=== PATIENT | male | born 1960 | race Caucasian/White ===

== ENCOUNTER 2017-10-26 09:18 | Observation (INO) | payer OTHER ==
[2017-10-26 10:25] LABS: ADD MAN DIFF? NO
[2017-10-26 10:29] LABS: WHITE BLOOD COUNT 5.3 10^3/ul (4.8-10.8)
[2017-10-26 10:29] LABS: BASOPHILS % 0.4 % (0.0-2.0); EOSINOPHILS # 0.1 10^3/ul (0.0-0.5); EOSINOPHILS % 1.9 % (0.0-7.0); HEMATOCRIT 40.6 % (42.0-52.0); HEMOGLOBIN 13.6 g/dl (14.0-18.0); LYMPHOCYTES % 38.6 % (15.0-51.0); MEAN CORPUSCULAR HEMOGLOBIN 29.2 pg (29.0-33.0); MEAN CORPUSCULAR HGB CONC 33.5 g/dl (32.0-37.0); MEAN CORPUSCULAR VOLUME 87.3 fl (82.0-101.0); MEAN PLATELET VOLUME 11.6 fl (7.4-10.4); MONOCYTE # 0.4 10^3/ul (0.3-0.9); MONOCYTES % 6.6 % (0.0-11.0); NEUTROPHIL # 2.8 10^3/ul (1.6-7.5); NEUTROPHILS % 52.3 % (39.0-77.0); PLATELET COUNT 195 10^3/UL (140-415); RED BLOOD COUNT 4.65 10^6/ul (4.70-6.10); RED CELL DISTRIBUTION WIDTH 11.2 % (11.5-14.5)
[2017-10-26 10:54] LABS: INR 1.07; PARTIAL THROMBOPLASTIN TIME 33.3 Sec (25.0-35.0); PT RATIO 1.1
[2017-10-26 10:56] LABS: ALANINE AMINOTRANSFERASE 48 IU/L (13-69); ALBUMIN 4.4 g/dl (3.3-4.9); ALKALINE PHOSPHATASE 89 IU/L (42-121); ANION GAP 17 (8-16); ASPARTATE AMINO TRANSFERASE 37 IU/L (15-46); BILIRUBIN,INDIRECT 0.6 mg/dl (0-1.1); BILIRUBIN,TOTAL 0.6 mg/dl (0.2-1.3); CARBON DIOXIDE 26 mmol/L (21-31); CHLORIDE 105 mmol/L (97-110); GLUCOSE 97 mg/dl (70-220)
[2017-10-26 10:57] LABS: ALBUMIN/GLOBULIN RATIO 1.22; CHOL/HDL RATIO 2.6 RATIO; CHOLESTEROL 113 mg/dl (100-200); HDL CHOLESTEROL 43 mg/dl (30-78); LDL CHOLESTEROL,CALCULATED 59 mg/dl; TRIGLYCERIDES 55 mg/dl (0-149)
[2017-10-26 10:59] LABS: BLOOD UREA NITROGEN 15 mg/dl (7-20); CREATININE 0.86 mg/dl (0.61-1.24); POTASSIUM 4.5 mmol/L (3.5-5.1); SODIUM 143 mmol/L (135-144)
[2017-10-26] MEDS: CEFAZOLIN 2 GM/50 ML (PMX) 50 ML IVPB (11:00)
[2017-10-26] MEDS: POLYMYXIN/BACITRACIN 1L IRRIG IRR (11:00)
[2017-10-26] MEDS ORDERED: LIDOCAINE 1%/EPI 30 ML INJ (11:41)
[2017-10-26] MEDS ORDERED: CEFAZOLIN 1 GM/50 ML (PMX) 50 ML IVPB (11:43)
[2017-10-26] MEDS ORDERED: KETAMINE 500 MG INJ (11:57)
[2017-10-26] MEDS ORDERED: MIDAZOLAM 1 MG/ML 2 ML INJ (11:57)
[2017-10-26] MEDS ORDERED: PROPOFOL 100 ML (11:57)
[2017-10-26] MEDS ORDERED: ONDANSETRON 4 MG INJ IV (13:30)
[2017-10-26] MEDS ORDERED: morphine 2 MG INJ IV (13:30)
[2017-10-26] MEDS ORDERED: ACETAMINOPHEN 325 MG TAB PO (13:30)
[2017-10-26] MEDS ORDERED: hydrALAzine 20 MG INJ IV (13:30)
[2017-10-26] MEDS ORDERED: LABETALOL HCL 20MG INJ IV (13:30)
[2017-10-26] MEDS: FENTAnyl 50 MCG/ML VIAL IV ×3 (13:31→13:58)
[2017-10-26] MEDS: CEFAZOLIN 1 GM/50 ML (PMX) 50 ML IVPB ×2 (14:02→21:37)
[2017-10-26] MEDS: morphine (1 MG/ML) 10ML SYRINGE IV (14:20)
[2017-10-26] MEDS: morphine 2 MG INJ IV (19:28)
[2017-10-26] MEDS: ATORVASTATIN 80 MG TAB PO (20:27)
[2017-10-27] MEDS: CEFAZOLIN 1 GM/50 ML (PMX) 50 ML IVPB (05:16)
[2017-10-27] MEDS: CLOPIDOGREL 75 MG TAB PO (08:28)
[2017-10-27] MEDS: LISINOPRIL 5 MG TAB PO (08:29)
== END 2017-10-27 12:38 | disposition home or self-care (01) ==
LOC: SDS 09:18 → REC 13:17 → MS4 16:03
DX: I50.20 Unspecified systolic (congestive) heart failure (principal); I25.5 Ischemic cardiomyopathy; I25.10 Atherosclerotic heart disease of native coronary artery without angina pectoris; I47.1 Supraventricular tachycardia; E78.5 Hyperlipidemia, unspecified; I25.2 Old myocardial infarction; Z95.1 Presence of aortocoronary bypass graft
CPT/HCPCS: 33249; 71010; 80053; 80061; 85025; 85610; 85730; 93005; G0378